=== PATIENT | female | born 1960 | race Caucasian/White ===

== ENCOUNTER → 2022-01-08 | Outpatient (REF) | payer OTHER | LOC: M SFHCDERM 15:54 | PROVIDERS: ATTEND Nurse Practitioner Family | DX: D22.5 Melanocytic nevi of trunk (principal) ==

== ENCOUNTER → 2024-06-25 | Outpatient (CLI) | payer OTHER | LOC: M PLAIMG 09:27 | PROVIDERS: ATTEND Physician Assistant | DX: J32.8 Other chronic sinusitis (principal) ==

== ENCOUNTER 2024-10-18 09:08 | Day surgery (SDC) | payer OTHER ==
[~2024-10-18] VITALS: Ht 157.5 cm; Wt 64.9 kg
[~2024-10-18 09:08] MED LIST: AMOX875T2 PO; ESTRTAB11 PO; FLON1SPR; MAGN400C2 PO; MONT10TA97 PO; NEXI20CA PO; PROBCAP14 PO; VENTAER INH
[2024-10-18] MEDS ORDERED: LR 1,000 ML IV SCH ×2 (09:35→13:15)
[2024-10-18] MEDS ORDERED: REMIFENTANIL 1MG 3ML VIAL As Ordered ONE (10:28)
[2024-10-18] MEDS ORDERED: ONDANSETRON 4MG 2ML VIAL As Ordered ONE (10:33)
[2024-10-18] MEDS ORDERED: SUGAMMADEX SODIUM 500 MG/5 ML VIAL As Ordered ONE (10:33)
[2024-10-18] MEDS ORDERED: LIDOCAINE 2% 100MG/5ML SDV (FOR ANES.) As Ordered ONE (10:33)
[2024-10-18] MEDS ORDERED: propofoL 200 MG/20 ML VIAL As Ordered ONE (10:33)
[2024-10-18] MEDS ORDERED: ACETAMINOPHEN 1000MG/100ML IV BAG As Ordered ONE (10:33)
[2024-10-18] MEDS ORDERED: ROCURONIUM BROMIDE 50MG/5ML VIAL As Ordered ONE (10:33)
[2024-10-18] MEDS ORDERED: fentaNYL 100 MCG/2 ML INJECTION As Ordered ONE (10:34)
[2024-10-18] MEDS ORDERED: MIDAZOLAM INJ 2MG/2ML VIAL As Ordered ONE (10:34)
[2024-10-18] MEDS ORDERED: ePHEDrine SULFATE 25 MG/5 ML(5MG/ML) SYRINGE As Ordered ONE (12:05)
[2024-10-18] MEDS: COCAINE 4% 4ML NASAL SOLUTION BTL As Ordered ONE (12:07)
[2024-10-18] MEDS: OXYMETAZOLINE 0.05% NASAL SPRAY As Ordered ONE (12:07)
[2024-10-18] MEDS: LIDOCAINE W/EPINEPHRINE 1% 20ML VIAL As Ordered ONE (12:10)
[2024-10-18] MEDS ORDERED: ONDANSETRON 4MG 2ML VIAL IV PRN (13:15)
[2024-10-18] MEDS ORDERED: fentaNYL 100 MCG/2 ML INJECTION IV PRN (13:15)
[2024-10-18] MEDS: oxyCODONE 5MG TAB PO PRN (13:49)
[2024-10-18] MEDS: HYDROMORPHONE HCL 0.5 MG/ 0.5 ML SYRINGE IV PRN (13:51)
[2024-10-18] MEDS ORDERED: ANEXSIA, NORCO 7.5MG/325MG TABLET(HYDROCODONE/APAP) PO PRN (14:10)
[2024-10-18 14:35] VITALS: BP 124/58; TEMP 96.8; O2SAT 96
== END 2024-10-18 14:55 | disposition home or self-care (01) ==
LOC: M SDC 09:08
PROVIDERS: ATTEND Otolaryngology
DX: J32.8 Other chronic sinusitis (principal); E78.00 Pure hypercholesterolemia, unspecified; K21.9 Gastro-esophageal reflux disease without esophagitis; G43.909 Migraine, unspecified, not intractable, without status migrainosus; Z79.899 Other long term (current) drug therapy; F17.210 Nicotine dependence, cigarettes, uncomplicated; Z90.710 Acquired absence of both cervix and uterus; Z88.8 Allergy status to other drugs, medicaments and biological substances
CPT/HCPCS: 31254; 31267; 31276; 31288; 88305; 93005; C9143; J0131; J1100; J1171; J2250; J2405; J3010